=== PATIENT | female | born 1970 ===

== ENCOUNTER 2017-10-09 16:09 | Inpatient (IN) | payer SELFPAY ==
[2017-10-09] MEDS ORDERED: Sodium Chloride 0.9% 1,000 ML IV STA ×2 (16:59→18:17)
[2017-10-09] MEDS ORDERED: Sodium Chloride 0.9% 1,000 ML ONE ×3 (17:11→20:34)
[2017-10-09 17:32] LABS: BASO # 0.1 K/uL (0.0-0.2); BASO % 0.8 % (0.0-2.0); EOS % 0.1 % (0.0-4.0); HEMOGLOBIN 10.9 g/dL (11.0-16.0); MEAN CELL VOLUME 79.7 fL (81.0-99.0); MEAN CORPUSCULAR HGB CONC 32.6 g/dL (33.0-37.0); MEAN PLATELET VOLUME 7.8 fL (7.2-11.7); MONO # 0.8 K/uL (0.0-0.8); MONO % 5.7 % (0.0-10.0); NEUT % 86.4 % (50.0-75.0); PLATELET COUNT 391 K/uL (130-400); RBC 4.19 Mil/uL (3.80-5.20); RED CELL DISTRIBUTION WIDTH 16.6 % (11.5-14.5); WHITE BLOOD COUNT 13.9 K/uL (4.8-10.8)
[2017-10-09 17:38] LABS: ALBUMIN 3.9 g/dL (3.5-5.0); ALT/SGPT 105 U/L (9-52); AST/SGOT 48 U/L (14-36); BLOOD UREA NITROGEN 7 mg/dL (7-17); GFR AFRICAN-AMERICAN > 60; GFR NON-AFRICAN AMERICAN > 60; LIPASE 20 U/L (23-300)
--- NOTE | 2017-10-09 17:57 | C.PDOC ---
History Of Present Illness <Mikki Mayers - Last Filed: 10/09/17 19:14> <Elizabeth Covington - Last Filed: 10/09/17 20:40> Erendira Perez is a 46 year old female who presents to the emergency department complaining of body aches, headache, nausea, vomiting and constipation onset for the last x 3 days. Patient reports that family members at home all have flu- like symptoms but nobody has vomited. She denies any other medical complaints. PMD: None provided. (Mikki Mayers) History Per: Patient History/Exam Limitations: no limitations Onset/Duration Of Symptoms: Days (x3) Current Symptoms Are (Timing): Still Present Associated Symptoms: Nausea, Vomiting, Constipation, Other (body aches, headache ) <Mikki Mayers - Last Filed: 10/09/17 19:14> <Elizabeth Covington - Last Filed: 10/09/17 20:40> Time Seen by Provider: 10/09/17 16:59 Chief Complaint (Nursing): GI Problem Past Medical History Reviewed: Historical Data, Nursing Documentation, Vital Signs - Medical History PMH: No Chronic Diseases Surgical History: Cholecystectomy Family History: States: Unknown Family Hx - Social History Hx Tobacco Use: No Hx Alcohol Use: No Hx Substance Use: No - Immunization History Hx Tetanus Toxoid Vaccination: No Hx Influenza Vaccination: No Hx Pneumococcal Vaccination: No <Mikki Mayers - Last Filed: 10/09/17 19:14> Vital Signs: Last Vital Signs Temp 99.8 F H 10/09/17 19:19 Pulse 83 10/09/17 19:19 Resp 18 10/09/17 19:19 BP 132/76 10/09/17 19:19 Pulse Ox 100 10/09/17 19:19 Review Of Systems Except As Marked, All Systems Reviewed And Found Negative. Constitutional: Positive for: Other (body aches) Gastrointestinal: Positive for: Nausea, Vomiting, Constipation Neurological: Positive for: Headache <Mikki Mayers - Last Filed: 10/09/17 19:14> Physical Exam - Physical Exam Appears: No Acute Distress, Other (sick looking, febrile) Skin: Normal Color, Warm, Dry Head: Atraumatic, Normacephalic Eye(s): bilateral: Normal Inspection Ear(s): Bilateral: Normal Oral Mucosa: Moist Throat: No Erythema Neck: Normal ROM, Supple Chest: Symmetrical Cardiovascular: Rhythm Regular, No Murmur, Other (tachycardic) Respiratory: Normal Breath Sounds, No Wheezing Gastrointestinal/Abdominal: Soft, Tenderness (diffusely ), No Mass, No Distention, No Guarding, No Rebound Back: Normal Inspection, No CVA Tenderness, No Vertebral Tenderness, No Paraspinal Tenderness Extremity: Normal ROM, No Deformity, No Swelling Neurological/Psych: Oriented x3, Normal Speech, Normal Cognition <Mikki Mayers - Last Filed: 10/09/17 19:14> ED Course And Treatment - Laboratory Results Result Diagrams: 10/09/17 17:22 10/09/17 17:22 O2 Sat by Pulse Oximetry: 100 (RA) Pulse Ox Interpretation: Normal Progress Note: Initial Plan: --Chest two views (PA/LAT) [RAD]. --Sodium Chloride 1,000 ml IV 1,000 mls/hr. --Tylenol 325mg tab 975 mg PO. --Zofran Inj 4mg IVP. --Abd 2 views (FLAT/UP or DECUB) [RAD]. CBC - leucocytosis. UA - UTI. CMP- hypokalemia. Urine Cx ordered,. KCL po ordered. Rocephin IV ordered,. -Influenza came back negative. Pt will be given IV fluids and Zofran <Mikki Mayers - Last Filed: 10/09/17 19:14> - Laboratory Results Result Diagrams: 10/09/17 17:22 10/09/17 17:22 <Elizabeth Covington - Last Filed: 10/09/17 20:40> Disposition - Disposition Disposition Time: 19:03 <Mikki Mayers - Last Filed: 10/09/17 19:14> Discussed With : Gil Tipton Comment: accepted the pt on his service and took over the care at 8:36 PM Doctor Will See Patient In The: ED Counseled Patient/Family Regarding: Studies Performed, Diagnosis <Elizabeth Covington - Last Filed: 10/09/17 20:40> - Disposition Disposition: HOSPITALIZED Condition: FAIR Forms: [employer] ([place]) - Clinical Impression Clinical Impression: Fever, Vomiting, Pyelonephritis <Mikki Mayers - Last Filed: 10/09/17 19:14> <Elizabeth Covington - Last Filed: 10/09/17 20:40> - Scribe Statement Amarjit Olivares All medical record entries made by the Scribe were at my direction and personally dictated by me. I have reviewed the chart and agree that the record accurately reflects my personal performance of the history, physical exam, medical decision making, and the department course for this patient. I have also personally directed, reviewed, and agree with the discharge instructions and disposition. (Mikki Mayers) Decision To Admit <Mikki Mayers - Last Filed: 10/09/17 19:14> - Pt Status Changed To: Hospital Disposition Of: Inpatient - Admit Certification Admit to Inpatient:: After my assessment, the patient will require hospitalization for at least two midnights. This is because of the severity of symptoms shown, intensity of services needed, and/or the medical risk in this patient being treated as an outpatient. - InPatient: Physician Admission Certification: I certify that this patient requires 2 or more midnights of care for the following reason:: After my assessment, the patient will require hospitalization for at least two midnights. This is because of the severity of symptoms shown, intensity of services needed, and/or the medical risk in this patient being treated as an outpatient. - . Bed Request Type: Regular Admitting Physician: Gil Tipton <Elizabeth Covington - Last Filed: 10/09/17 20:40> - . Patient Diagnosis: Fever, Vomiting Physician Patient Turnover Patient Signed Over To: Elizabeth Covington Handoff Comments: CXR, Abdominal Xray, Rocephin IV, dispo <Mikki Mayers - Last Filed: 10/09/17 19:14>
[2017-10-09 17:59] LABS: ANISOCYTOSIS SLIGHT; BANDS 5 % (0-2); BASOPHIL 1 % (0-2); HYPOCHROMIC SLIGHT; LARGE PLATELETS PRESENT; LYMPHOCYTE 8 % (20-40); MICROCYTOSIS SLIGHT; MONOCYTE 5 % (0-10); NEUTROPHIL 81 % (50-75); OVALOCYTES SLIGHT; PLATELET ESTIMATE NORMAL (NORMAL); POIKILOCYTOSIS SLIGHT; POLYCHROMIC SLIGHT; TOTAL CELLS COUNTED 100
[2017-10-09] MEDS ORDERED: Potassium Chloride 20 mEq ER Tab PO STA (18:17)
[2017-10-09 18:22] LABS: HCG,QUALITATIVE URINE NEGATIVE (NEGATIVE)
[2017-10-09] MEDS ORDERED: Potassium Chloride 20 mEq ER Tab PO ONE (18:27)
[2017-10-09 18:41] LABS: SQUAMOUS EPITHIAL 2 /hpf (0-5); URINE BACTERIA FEW (<OCC); URINE BILIRUBIN NEGATIVE (NEGATIVE); URINE BLOOD 2+ (NEGATIVE); URINE CLARITY Hazy (Clear); URINE COLOR Yellow (YELLOW); URINE GLUCOSE (UA) NORMAL (Normal); URINE LEUKOCYTE ESTERASE 3+ Leu/uL (Negative); URINE NITRATE POSITIVE (NEGATIVE); URINE PROTEIN 1+ mg/dL (NEGATIVE)
[2017-10-09] MEDS ORDERED: cefTRIAXone IV 1 gm in Dextros 50 ML IVPB ONE (19:24)
[2017-10-09] MEDS ORDERED: Sodium Chloride 0.9% 1,000 ML IV ONE (20:31)
[2017-10-09 20:33] LABS: VENOUS BLOOD GAS BASE EXCESS -1.8 mmol/L (0.0-2.0); VENOUS BLOOD GAS PCO2 39 mmHg (40-60); VENOUS BLOOD GAS PO2 35 mm/Hg (30-55); VENOUS BLOOD PH 7.38 (7.32-7.43)
--- NOTE | 2017-10-09 21:59 | CP.PCM.HP ---
<Yaz ClearyJenny - Last Filed: 10/10/17 01:31> History of Present Illness - History of Present Illness History of Present Illness: HPI: Patient is a 46 year old female with a past medical history of hypercholesterolemia, who presents to the ED with complaints of nausea, vomiting , headache, fevers, and body aches for 3 days. She also complains of chest pain when she coughs, dysuria, and dizziness. Patient took two Aleve and one ibuprofen 600mg without relief of symptoms. She states that every time she drinks or eats, she feels nausea and vomits. Patient denies abdominal pain, hematuria, blood in stools, sore throat, sick contacts and recent travel. and two children were at bedside. PMD: none PMHx: hypercholesterolemia SurgHx: cholecystectomy 2011 FamHx: Mother- VT; Brother- VT, depression, DM; Father- CVA SocHx: denies tobacco, alcohol, and drug use; lives with family in [place]; works as security guard supervisor Allergies: NKDA Medications: none Present on Admission - Present on Admission Any Indicators Present on Admission: No Review of Systems - Constitutional Constitutional: Chills, Fever, Headache, Weakness - EENT Ears: Dizziness - Cardiovascular Cardiovascular: Chest Pain (with coughing), Dyspnea. absent: Palpitations - Respiratory Respiratory: Dyspnea - Gastrointestinal Gastrointestinal: Constipation, Nausea, Vomiting. absent: Abdominal Pain, Diarrhea - Genitourinary Genitourinary: Dysuria. absent: Hematuria, Urinary Frequency - Musculoskeletal Musculoskeletal: Arthralgias, Myalgias - Integumentary Integumentary: absent: Rash - Neurological Neurological: Dizziness, Headaches - Endocrine Endocrine: absent: Palpitations Past Patient History - Past Social History Smoking Status: Never Smoked - PSYCHIATRIC Hx Substance Use: No - SURGICAL HISTORY Hx Cholecystectomy: Yes Meds Allergies/Adverse Reactions: Allergies Allergy/AdvReac Type Severity Reaction Status Date / Time shellfish derived Allergy Verified 10/09/17 16:40 Physical Exam - Constitutional Appears: No Acute Distress - Head Exam Head Exam: ATRAUMATIC, NORMAL INSPECTION - Eye Exam Eye Exam: EOMI, Normal appearance, PERRL - ENT Exam ENT Exam: Mucous Membranes Moist - Respiratory Exam Respiratory Exam: Clear to Auscultation Bilateral, NORMAL BREATHING PATTERN. absent: Rhonchi, Wheezes, Respiratory Distress - Cardiovascular Exam Cardiovascular Exam: REGULAR RHYTHM, +S1, +S2 - GI/Abdominal Exam GI & Abdominal Exam: Normal Bowel Sounds, Soft. absent: Distended, Firm, Guarding, Tenderness - Extremities Exam Extremities exam: Positive for: normal inspection, pedal pulses present. Negative for: pedal edema, tenderness - Back Exam Back exam: CVA tenderness (L). absent: CVA tenderness (R) - Neurological Exam Neurological exam: Alert, Oriented x3 - Psychiatric Exam Psychiatric exam: Normal Affect, Normal Mood - Skin Skin Exam: Dry, Intact, Normal Color, Warm Results - Vital Signs Recent Vital Signs: Last Vital Signs Temp 99.8 F H 10/09/17 19:19 Pulse 99 H 10/09/17 21:27 Resp 19 10/09/17 21:27 BP 113/76 10/09/17 21:27 Pulse Ox 97 10/09/17 21:27 - Labs Result Diagrams: 10/09/17 17:22 10/09/17 17:22 Labs: Laboratory Results - last 24 hr 10/09/17 10/09/17 10/09/17 17:22 17:22 17:27 WBC 13.9 H RBC 4.19 Hgb 10.9 L Hct 33.4 L MCV 79.7 L MCH 26.0 L MCHC 32.6 L RDW 16.6 H Plt Count 391 MPV 7.8 Neut % (Auto) 86.4 H Lymph % (Auto) 7.0 L [place] % (Auto) 5.7 Eos % (Auto) 0.1 Baso % (Auto) 0.8 Neut # 12.0 H Lymph # 1.0 [place] # 0.8 Eos # 0.0 Baso # 0.1 Neutrophils % (Manual) 81 H Band Neutrophils % 5 H Lymphocytes % (Manual) 8 L Monocytes % (Manual) 5 Basophils % (Manual) 1 Platelet Estimate Normal Large Platelets Present Polychromasia Slight Hypochromasia (manual) Slight Poikilocytosis (manual Slight Anisocytosis (manual) Slight Microcytosis (manual) Slight Ovalocytes Slight pO2 VBG pH VBG pCO2 VBG HCO3 VBG Total CO2 VBG O2 Sat (Calc) VBG Base Excess VBG Potassium Glucose Lactate FiO2 Sodium 130 L Potassium 3.4 L Chloride 97 L Carbon Dioxide 21 L Anion Gap 15 BUN 7 Creatinine 0.7 Est GFR ( Amer) > 60 Est GFR (Non-Af Amer) > 60 Random Glucose 110 H Calcium 8.0 L Total Bilirubin 1.4 H AST 48 H ALT 105 H Alkaline Phosphatase 149 H Total Protein 7.7 Albumin 3.9 Globulin 3.9 Albumin/Globulin Ratio 1.0 Lipase 20 L Venous Blood Potassium Urine Color Urine Clarity Urine pH Ur Specific [place] Urine Protein Urine Glucose (UA) Urine Ketones Urine Blood Urine Nitrate Urine Bilirubin Urine Urobilinogen Ur Leukocyte Esterase Urine WBC (Auto) Urine RBC (Auto) Ur Squamous Epith Cells Urine Bacteria Urine HCG, Qual Influenza Typ A,B (EIA) Negative for flu a/b 10/09/17 10/09/17 18:16 20:25 WBC RBC Hgb Hct MCV MCH MCHC RDW Plt Count MPV Neut % (Auto) Lymph % (Auto) [place] % (Auto) Eos % (Auto) Baso % (Auto) Neut # Lymph # [place] # Eos # Baso # Neutrophils % (Manual) Band Neutrophils % Lymphocytes % (Manual) Monocytes % (Manual) Basophils % (Manual) Platelet Estimate Large Platelets Polychromasia Hypochromasia (manual) Poikilocytosis (manual Anisocytosis (manual) Microcytosis (manual) Ovalocytes pO2 35 VBG pH 7.38 VBG pCO2 39 L VBG HCO3 22.7 VBG Total CO2 24.3 VBG O2 Sat (Calc) 67.7 H VBG Base Excess -1.8 L VBG Potassium 3.4 L Glucose 106 H Lactate 0.6 L FiO2 21.0 Sodium 139.0 Potassium Chloride 107.0 Carbon Dioxide Anion Gap BUN Creatinine Est GFR ( Amer) Est GFR (Non-Af Amer) Random Glucose Calcium Total Bilirubin AST ALT Alkaline Phosphatase Total Protein Albumin Globulin Albumin/Globulin Ratio Lipase Venous Blood Potassium 3.4 L Urine Color Yellow Urine Clarity Hazy Urine pH 6.0 Ur Specific [place] 1.006 Urine Protein 1+ H Urine Glucose (UA) Normal Urine Ketones Trace Urine Blood 2+ H Urine Nitrate Positive H Urine Bilirubin Negative Urine Urobilinogen 2.0 H Ur Leukocyte Esterase 3+ H Urine WBC (Auto) 241 H Urine RBC (Auto) 4 H Ur Squamous Epith Cells 2 Urine Bacteria Few H Urine HCG, Qual Negative Influenza Typ A,B (EIA) Assessment & Plan (1) Pyelonephritis Assessment and Plan: * Leukocytosis 13.9, Bands 5 * Febrile at admission, currently afebrile after Tylenol given * Lactate 0.6 * Lipase 20 * UA: 1+ protein, 2+ blood,2 urobilinogen, 3+ LE, +Nitrates, WBC 241, RBC 4, Few bacteria * : negative * In the ED: Tylenol, Rocephin, Toradol, Kdur, and Zofran were given * Abdomen xray: f/u results * CXR: f/u results * Blood cx: f/u results * Urine cx: f/u results * Medications: * Tylenol 650mg mg PO Q6 prn * Rocephin 1gmIV Q24h * Zofran 4mg IV Q6 prn * Pyridium 100mg PO TID prn * NS@100mls/hr Status: Acute (2) History of high cholesterol Assessment and Plan: Patient has hx of high cholesterol; not currently taking medication, but has in the past. Lipid Panel: f/u results Status: Acute (3) Prophylactic measure Assessment and Plan: SCDs, ambulates Pepcid 20mg PO BID Regular diet Status: Acute <Gil Tipton - Last Filed: 10/10/17 19:05> Results - Vital Signs Recent Vital Signs: Last Vital Signs Temp 99.2 F 10/10/17 15:12 Pulse 93 H 10/10/17 15:12 Resp 20 10/10/17 15:12 BP 159/88 H 10/10/17 15:12 Pulse Ox 96 10/10/17 15:12 - Labs Result Diagrams: 10/10/17 08:19 10/10/17 08:19 Labs: Laboratory Results - last 24 hr 10/09/17 10/10/17 10/10/17 20:25 08:19 08:19 WBC 8.9 RBC 3.73 L Hgb 9.8 L Hct 30.2 L MCV 81.2 MCH 26.4 L MCHC 32.5 L RDW 16.5 H Plt Count 331 MPV 8.4 Neut % (Auto) 79.9 H Lymph % (Auto) 12.2 L [place] % (Auto) 7.0 Eos % (Auto) 0.6 Baso % (Auto) 0.3 Neut # 7.1 H Lymph # 1.1 [place] # 0.6 Eos # 0.1 Baso # 0.0 pO2 35 VBG pH 7.38 VBG pCO2 39 L VBG HCO3 22.7 VBG Total CO2 24.3 VBG O2 Sat (Calc) 67.7 H VBG Base Excess -1.8 L VBG Potassium 3.4 L Sodium 139.0 136 Chloride 107.0 104 Glucose 106 H Lactate 0.6 L FiO2 21.0 Potassium 3.5 L Carbon Dioxide 23 Anion Gap 13 BUN 6 L Creatinine 0.7 Est GFR ( Amer) > 60 Est GFR (Non-Af Amer) > 60 Random Glucose 121 H Calcium 8.0 L Total Bilirubin 1.1 AST 52 H ALT 95 H Alkaline Phosphatase 212 H D Total Protein 6.7 Albumin 3.3 L Globulin 3.4 Albumin/Globulin Ratio 1.0 Triglycerides 205 H Cholesterol 151 LDL Cholesterol Direct 64 HDL Cholesterol 19 L Venous Blood Potassium 3.4 L Assessment & Plan - Date & Time Date: 10/10/17 (I have seen and examined the patient. I agree with the findings and plan of care as documented by Dr. Cleary. Patient with pyelonephritis. Rocephin IV. Blood and urine cultures. Also with nausea and vomiting. Symptomatic treatment. IV hydration as needed. Monitor for acute changes.) Time: 19:04 Attending/Attestation - Attestation I have personally seen and examined this patient.: Yes I have fully participated in the care of the patient.: Yes I have reviewed all pertinent clinical information: Yes
[2017-10-09 22:10] VITALS: RESP 20
[2017-10-09] MEDS: Sodium Chloride 0.9% 1,000 ML IV SCH (23:17)
[2017-10-10 08:42] LABS: BASO % 0.3 % (0.0-2.0); EOS # 0.1 K/uL (0.0-0.7); EOS % 0.6 % (0.0-4.0); HEMOGLOBIN 9.8 g/dL (11.0-16.0); LYMPH # 1.1 K/uL (1.0-4.3); LYMPH % 12.2 % (20.0-40.0); MEAN CELL VOLUME 81.2 fL (81.0-99.0); MEAN CORPUSCULAR HEMOGLOBIN 26.4 pg (27.0-31.0); MEAN CORPUSCULAR HGB CONC 32.5 g/dL (33.0-37.0); MEAN PLATELET VOLUME 8.4 fL (7.2-11.7); MONO # 0.6 K/uL (0.0-0.8); NEUT # 7.1 K/uL (1.8-7.0); NEUT % 79.9 % (50.0-75.0); NRBC % 0.1 % (0.0-2.0); RBC 3.73 Mil/uL (3.80-5.20); RED CELL DISTRIBUTION WIDTH 16.5 % (11.5-14.5); WHITE BLOOD COUNT 8.9 K/uL (4.8-10.8)
[2017-10-10] MEDS: Sodium Chloride 0.9% 1,000 ML IV SCH ×3 (08:49→20:56)
[2017-10-10 09:04] LABS: ALBUMIN 3.3 g/dL (3.5-5.0); ALT/SGPT 95 U/L (9-52); AST/SGOT 52 U/L (14-36); BLOOD UREA NITROGEN 6 mg/dL (7-17); GFR AFRICAN-AMERICAN > 60; GFR NON-AFRICAN AMERICAN > 60; HDL CHOLESTEROL 19 mg/dL (30-70)
[2017-10-10 09:05] LABS: LDL CHOLESTEROL 64 mg/dL (0-129)
--- NOTE | 2017-10-10 11:20 | RAD ---
HISTORY: FEVER, CONSTIPATION X 3 DAYS COMPARISON: No prior. FINDINGS: BOWEL: Normal. No obstruction. No free air. BONES: Normal. OTHER FINDINGS: Surgical clips in right upper quadrant consistent with prior cholecystectomy. IMPRESSION: No active disease.
--- NOTE | 2017-10-10 12:26 | RAD ---
HISTORY: fever COMPARISON: No prior. TECHNIQUE: Chest PA and lateral FINDINGS: LUNGS: No active pulmonary disease. PLEURA: No significant pleural effusion identified. No pneumothorax apparent. CARDIOVASCULAR: Normal. OSSEOUS STRUCTURES: No significant abnormalities. VISUALIZED UPPER ABDOMEN: Normal. OTHER FINDINGS: None. IMPRESSION: No active disease.
--- NOTE | 2017-10-10 19:50 | CP.PCM.PN ---
Subjective - Date & Time of Evaluation Date of Evaluation: 10/10/17 Time of Evaluation: 13:00 - Subjective Subjective: no abdominal pain,no back pain c/o body aches,headache and fever Objective - Vital Signs/Intake and Output Vital Signs (last 24 hours): Temp Pulse Resp BP Pulse Ox 99.2 F 93 H 20 159/88 H 96 10/10/17 15:12 10/10/17 15:12 10/10/17 15:12 10/10/17 15:12 10/10/17 15:12 Intake and Output: 10/10/17 10/11/17 18:59 06:59 Intake Total 2300 Balance 2300 - Medications Medications: Current Medications Acetaminophen (Tylenol 325mg Tab) 650 mg PO Q6 PRN PRN Reason: Pain, Mild (1-3) Last Admin: 10/10/17 09:22 Dose: 650 mg Docusate Sodium (Colace) 100 mg PO BID [facility] Last Admin: 10/10/17 17:55 Dose: 100 mg Famotidine (Pepcid) 20 mg PO BID [facility] Last Admin: 10/10/17 17:55 Dose: 20 mg Ceftriaxone Sodium 1 gm/ (Sodium Chloride) 100 mls @ 100 mls/hr IVPB DAILY [facility] Last Admin: 10/10/17 09:26 Dose: 100 mls/hr Sodium Chloride (Sodium Chloride 0.9%) 1,000 mls @ 100 mls/hr IV .Q10H [facility] Last Admin: 10/10/17 18:06 Dose: Not Given Ondansetron HCl (Zofran Inj) 4 mg IVP Q6 PRN PRN Reason: Nausea/Vomiting Last Admin: 10/10/17 17:59 Dose: 4 mg Phenazopyridine HCl (Pyridium) 100 mg PO TID PRN PRN Reason: Urinary discomt Pneumococcal Polyvalent Vaccine (Pneumovax 23 Vaccine) 0.5 ml IM .ONCE ONE Stop: 10/11/17 10:01 - Labs Labs: 10/10/17 08:19 10/10/17 08:19 - Constitutional Appears: Non-toxic - Head Exam Head Exam: NORMAL INSPECTION - Eye Exam Eye Exam: Normal appearance - ENT Exam ENT Exam: Mucous Membranes Moist - Neck Exam Neck Exam: Full ROM - Respiratory Exam Respiratory Exam: Clear to Ausculation Bilateral, NORMAL BREATHING PATTERN - Cardiovascular Exam Cardiovascular Exam: REGULAR RHYTHM - GI/Abdominal Exam GI & Abdominal Exam: Soft, Normal Bowel Sounds. absent: Guarding - Extremities Exam Extremities Exam: Full ROM - Back Exam Back Exam: NORMAL INSPECTION - Neurological Exam Neurological Exam: Awake, Oriented x3 - Psychiatric Exam Psychiatric exam: Normal Affect - Skin Skin Exam: Dry Assessment and Plan - Assessment and Plan (Free Text) Assessment: 46 year old female with a past medical history of hypercholesterolemia, who presents to the ED with complaints of nausea, vomiting, headache, fevers, and body aches for 3 days Plan: 1. Fever 102 F and UTI continue ceftrixone urine possitive for ecoli follow cultures 2.Intractable vomting fluids,zofran prn 3. DVT and GI prophylasix
[2017-10-10] MEDS ORDERED: Potassium Chloride 20 mEq/15 ml LIQ UD PO ONE (21:22)
[2017-10-11] MEDS: Sodium Chloride 0.9% 1,000 ML IV SCH ×2 (05:30→17:52)
[2017-10-11 06:21] LABS: BASO # 0.1 K/uL (0.0-0.2); BASO % 0.7 % (0.0-2.0); HEMOGLOBIN 9.6 g/dL (11.0-16.0); LYMPH # 1.5 K/uL (1.0-4.3); LYMPH % 14.4 % (20.0-40.0); MEAN CELL VOLUME 80.5 fL (81.0-99.0); MEAN CORPUSCULAR HEMOGLOBIN 26.3 pg (27.0-31.0); MEAN CORPUSCULAR HGB CONC 32.7 g/dL (33.0-37.0); MEAN PLATELET VOLUME 8.6 fL (7.2-11.7); MONO # 0.6 K/uL (0.0-0.8); MONO % 5.8 % (0.0-10.0); NEUT # 8.2 K/uL (1.8-7.0); NEUT % 79.1 % (50.0-75.0); NRBC % 0.1 % (0.0-2.0); RBC 3.66 Mil/uL (3.80-5.20); RED CELL DISTRIBUTION WIDTH 16.8 % (11.5-14.5); WHITE BLOOD COUNT 10.4 K/uL (4.8-10.8)
[2017-10-11 06:49] LABS: ALBUMIN 3.5 g/dL (3.5-5.0); ALT/SGPT 88 U/L (9-52); AST/SGOT 59 U/L (14-36); BLOOD UREA NITROGEN 3 mg/dL (7-17); CALCIUM 8.1 mg/dl (8.6-10.4); GFR AFRICAN-AMERICAN > 60; GFR NON-AFRICAN AMERICAN > 60
--- NOTE | 2017-10-11 07:48 | CP.PCM.PN ---
<Rika Dumont AfuaJenny - Last Filed: 10/11/17 13:48> Subjective - Date & Time of Evaluation Date of Evaluation: 10/11/17 Time of Evaluation: 07:00 - Subjective Subjective: Medicine Progress Note: Patient was seen and examined at bedside in the AM. Per nurse she has had a fever overnight 100.2. Patient states she has also had a fever and a headache.. She denies dysuria, hematuria, flank pain, nausea, vomiting, or diarrhea. She state she feels constipated as she has not had a bowel movement in a few days. Objective - Vital Signs/Intake and Output Vital Signs (last 24 hours): Temp Pulse Resp BP Pulse Ox 100.2 F H 101 H 20 164/90 H 97 10/11/17 06:45 10/11/17 06:00 10/11/17 06:00 10/11/17 06:00 10/11/17 06:00 Intake and Output: 10/11/17 10/11/17 06:59 18:59 Intake Total 2300 Balance 2300 - Medications Medications: Current Medications Acetaminophen (Tylenol 325mg Tab) 650 mg PO Q6 [facility] Stop: 10/12/17 06:01 Docusate Sodium (Colace) 100 mg PO BID [facility] Last Admin: 10/10/17 17:55 Dose: 100 mg Famotidine (Pepcid) 20 mg PO BID [facility] Last Admin: 10/10/17 17:55 Dose: 20 mg Heparin Sodium (Porcine) (Heparin) 5,000 units SC Q8 [facility] Last Admin: 10/11/17 07:00 Dose: 5,000 units Ceftriaxone Sodium 1 gm/ (Sodium Chloride) 100 mls @ 100 mls/hr IVPB DAILY [facility] Last Admin: 10/10/17 09:26 Dose: 100 mls/hr Sodium Chloride (Sodium Chloride 0.9%) 1,000 mls @ 100 mls/hr IV .Q10H [facility] Last Admin: 10/11/17 05:30 Dose: 100 mls/hr Ondansetron HCl (Zofran Inj) 4 mg IVP Q6 PRN PRN Reason: Nausea/Vomiting Last Admin: 10/10/17 17:59 Dose: 4 mg Phenazopyridine HCl (Pyridium) 100 mg PO TID PRN PRN Reason: Urinary discomt Pneumococcal Polyvalent Vaccine (Pneumovax 23 Vaccine) 0.5 ml IM .ONCE ONE Stop: 10/11/17 10:01 - Labs Labs: 10/11/17 06:06 10/11/17 06:06 - Constitutional Appears: No Acute Distress - Head Exam Head Exam: ATRAUMATIC, NORMAL INSPECTION - Eye Exam Eye Exam: EOMI, Normal appearance - ENT Exam ENT Exam: Mucous Membranes Moist - Respiratory Exam Respiratory Exam: Clear to Ausculation Bilateral, NORMAL BREATHING PATTERN - Cardiovascular Exam Cardiovascular Exam: REGULAR RHYTHM, +S1, +S2 - GI/Abdominal Exam GI & Abdominal Exam: Soft, Normal Bowel Sounds. absent: Tenderness - Extremities Exam Extremities Exam: Normal Inspection - Neurological Exam Neurological Exam: Alert, Awake, Oriented x3 - Psychiatric Exam Psychiatric exam: Normal Affect, Normal Mood - Skin Skin Exam: Normal Color, Warm Assessment and Plan - Assessment and Plan (Free Text) Assessment: 1) Pyelonephritis - Leukocytosis 13.9, Bands 5 - WBC 10.4 - Febrile at admission, currently afebrile after Tylenol given - UA: 1+ protein, 2+ blood,2 urobilinogen, 3+ LE, +Nitrates, WBC 241, RBC 4, Few bacteria - : negative - Images * Abdomen xray: No active disease * Chest X-ray: no active disease - Blood Culture: no growth - Urine Culture (10/09/17): E. Coli * repeat UA * repeat urine culture - Medications: * Tylenol 650mg mg PO Q6 prn * Motrin * Rocephin 1gmIV Q24h started on 10/10/17 * Zofran 4mg IV Q6 prn * Pyridium 100mg PO TID prn * NS@100mls/hr 2.) Constipation - resolved - Miralax PO BID PRN 3) History of high cholesterol - Patient has hx of high cholesterol; not currently taking medication, but has in the past. - Lipid Panel: Triglycerides 205; Cholesterol 151; LDL 64; HDL 19 - Heart Healthy Diet 3) Prophylactic measure - SCDs, ambulates - Pepcid 20mg PO BID Disposition: discharge pending repeat UA and repeat urine culture Case discussed with Dr. Dot Dumont PGY-1 <Ernst Chris - Last Filed: 10/11/17 17:00> Objective - Vital Signs/Intake and Output Vital Signs (last 24 hours): Temp Pulse Resp BP Pulse Ox 100.5 F H 90 20 151/79 H 94 L 10/11/17 07:19 10/11/17 07:19 10/11/17 07:19 10/11/17 07:19 10/11/17 07:19 Intake and Output: 10/11/17 10/11/17 06:59 18:59 Intake Total 2300 1500 Balance 2300 1500 - Medications Medications: Current Medications Acetaminophen (Tylenol 325mg Tab) 650 mg PO Q6 [facility] Stop: 10/12/17 06:01 Last Admin: 10/11/17 15:02 Dose: 650 mg Famotidine (Pepcid) 20 mg PO BID [facility] Last Admin: 10/11/17 09:55 Dose: 20 mg Heparin Sodium (Porcine) (Heparin) 5,000 units SC Q8 [facility] Last Admin: 10/11/17 14:59 Dose: 5,000 units Ceftriaxone Sodium 1 gm/ (Sodium Chloride) 100 mls @ 100 mls/hr IVPB DAILY [facility] Last Admin: 10/11/17 09:56 Dose: 100 mls/hr Sodium Chloride (Sodium Chloride 0.9%) 1,000 mls @ 100 mls/hr IV .Q10H [facility] Last Admin: 10/11/17 05:30 Dose: 100 mls/hr Ondansetron HCl (Zofran Inj) 4 mg IVP Q6 PRN PRN Reason: Nausea/Vomiting Last Admin: 10/10/17 17:59 Dose: 4 mg Phenazopyridine HCl (Pyridium) 100 mg PO TID PRN PRN Reason: Urinary discomt Polyethylene Glycol (Miralax) 17 gm PO BID PRN PRN Reason: Constipation - Labs Labs: 10/11/17 06:06 10/11/17 06:06 Attending/Attestation - Attestation I have personally seen and examined this patient.: Yes I have fully participated in the care of the patient.: Yes I have reviewed all pertinent clinical information, including history, physical exam and plan: Yes Notes (Text): 10/11/17 17:00 Medical attending: Patient was seen and examined with the medical physics researcher. I reviewed the above note and agree with the above. Patient had a family member at bedside, she was okay with us discussing her condition with the family member present. The patient reports feeling much better, she explains that her urinary symptoms are much improved from before. She still is having some headache though. But overall she reiterates to us that she feels much better The preliminary urine culture returned showing Escherichia coli. It has a lot of sensitivities to antibiotics. Sodium continue with the Rocephin at this time. Also get a repeat UA as well as repeat urine culture. It is possible that maybe she could be discharged tomorrow we'll see how she does. Thank you very much, Ernst Chris
[2017-10-11] MEDS ORDERED: Potassium Chloride 20 mEq ER Tab PO ONE (07:49)
[2017-10-11] MEDS ORDERED: Pneumococcal 23-Valent Vaccine IM ONE (10:00)
[2017-10-11] MEDS ORDERED: Influenza Vaccine 60 mcg/0.5 mL SYR (4YR UP) IM ONE (10:00)
[2017-10-11] MEDS ORDERED: POLYETHYLENE GLYCOL 3350 17 GM/Dose PACKET PO PRN (10:53)
[2017-10-11 23:08] LABS: SQUAMOUS EPITHIAL < 1 /hpf (0-5); URINE BACTERIA OCC (<OCC); URINE BILIRUBIN NEGATIVE (NEGATIVE); URINE BLOOD 1+ (NEGATIVE); URINE CLARITY Clear (Clear); URINE COLOR Yellow (YELLOW); URINE GLUCOSE (UA) NORMAL (Normal); URINE LEUKOCYTE ESTERASE NEG Leu/uL (Negative); URINE NITRATE NEGATIVE (NEGATIVE); URINE PROTEIN NEGATIVE (NEGATIVE)
[2017-10-12] MEDS: Sodium Chloride 0.9% 1,000 ML IV SCH ×2 (00:30→04:00)
[2017-10-12 05:41] VITALS: O2SAT 95
[2017-10-12 07:30] LABS: BASO % 0.7 % (0.0-2.0); EOS # 0.1 K/uL (0.0-0.7); EOS % 1.3 % (0.0-4.0); HEMOGLOBIN 9.4 g/dL (11.0-16.0); LYMPH # 1.7 K/uL (1.0-4.3); LYMPH % 25.2 % (20.0-40.0); MEAN CELL VOLUME 79.9 fL (81.0-99.0); MEAN CORPUSCULAR HEMOGLOBIN 26.1 pg (27.0-31.0); MEAN CORPUSCULAR HGB CONC 32.6 g/dL (33.0-37.0); MEAN PLATELET VOLUME 8.3 fL (7.2-11.7); MONO # 0.7 K/uL (0.0-0.8); MONO % 10.4 % (0.0-10.0); NEUT # 4.3 K/uL (1.8-7.0); NEUT % 62.4 % (50.0-75.0); NRBC % 0.1 % (0.0-2.0); RBC 3.59 Mil/uL (3.80-5.20); RED CELL DISTRIBUTION WIDTH 16.6 % (11.5-14.5); WHITE BLOOD COUNT 6.9 K/uL (4.8-10.8)
[2017-10-12 08:04] LABS: ALB/GLOB RATIO 0.9 (1.0-2.1); ALBUMIN 3.4 g/dL (3.5-5.0); ALT/SGPT 92 U/L (9-52); AST/SGOT 46 U/L (14-36); BLOOD UREA NITROGEN 3 mg/dL (7-17); CALCIUM 8.4 mg/dl (8.6-10.4); GFR AFRICAN-AMERICAN > 60; GFR NON-AFRICAN AMERICAN > 60
[2017-10-12 08:33] VITALS: BP 156/94; PULSE 90; TEMP 98.7
--- NOTE | 2017-10-12 10:35 | CP.PCM.DIS ---
<Rika Dumont - Last Filed: 10/12/17 16:18> Provider - Provider Date of Admission: 10/09/17 20:34 Attending physician: Ernst Chris DO Time Spent in preparation of Discharge (in minutes): 40 Hospital Course - Lab Results Lab Results: Micro Results 10/09/17 22:45 Blood Blood Culture - Preliminary NO GROWTH AFTER 48 HOURS 10/09/17 18:42 Urine Urine Culture - Final Escherichia Coli Most Recent Lab Values WBC 6.9 K/uL (4.8-10.8) 10/12/17 07:13 RBC 3.59 Mil/uL (3.80-5.20) L 10/12/17 07:13 Hgb 9.4 g/dL (11.0-16.0) L 10/12/17 07:13 Hct 28.7 % (34.0-47.0) L 10/12/17 07:13 MCV 79.9 fL (81.0-99.0) L 10/12/17 07:13 MCH 26.1 pg (27.0-31.0) L 10/12/17 07:13 MCHC 32.6 g/dL (33.0-37.0) L 10/12/17 07:13 RDW 16.6 % (11.5-14.5) H 10/12/17 07:13 Plt Count 407 K/uL (130-400) H 10/12/17 07:13 MPV 8.3 fL (7.2-11.7) 10/12/17 07:13 Neut % (Auto) 62.4 % (50.0-75.0) 10/12/17 07:13 Lymph % (Auto) 25.2 % (20.0-40.0) 10/12/17 07:13 [place] % (Auto) 10.4 % (0.0-10.0) H 10/12/17 07:13 Eos % (Auto) 1.3 % (0.0-4.0) 10/12/17 07:13 Baso % (Auto) 0.7 % (0.0-2.0) 10/12/17 07:13 Neut # 4.3 K/uL (1.8-7.0) 10/12/17 07:13 Lymph # 1.7 K/uL (1.0-4.3) 10/12/17 07:13 [place] # 0.7 K/uL (0.0-0.8) 10/12/17 07:13 Eos # 0.1 K/uL (0.0-0.7) 10/12/17 07:13 Baso # 0.0 K/uL (0.0-0.2) 10/12/17 07:13 Neutrophils % (Manual) 81 % (50-75) H 10/09/17 17:22 Band Neutrophils % 5 % (0-2) H 10/09/17 17:22 Lymphocytes % (Manual) 8 % (20-40) L 10/09/17 17:22 Monocytes % (Manual) 5 % (0-10) 10/09/17 17:22 Basophils % (Manual) 1 % (0-2) 10/09/17 17:22 Platelet Estimate Normal (NORMAL) 10/09/17 17:22 Large Platelets Present 10/09/17 17:22 Polychromasia Slight 10/09/17 17:22 Hypochromasia (manual) Slight 10/09/17 17:22 Poikilocytosis (manual Slight 10/09/17 17:22 Anisocytosis (manual) Slight 10/09/17 17:22 Microcytosis (manual) Slight 10/09/17 17:22 Ovalocytes Slight 10/09/17 17:22 pO2 35 mm/Hg (30-55) 10/09/17 20:25 VBG pH 7.38 (7.32-7.43) 10/09/17 20:25 VBG pCO2 39 mmHg (40-60) L 10/09/17 20:25 VBG HCO3 22.7 mmol/L 10/09/17 20:25 VBG Total CO2 24.3 mmol/L (22-28) 10/09/17 20:25 VBG O2 Sat (Calc) 67.7 % (40-65) H 10/09/17 20:25 VBG Base Excess -1.8 mmol/L (0.0-2.0) L 10/09/17 20:25 VBG Potassium 3.4 mmol/L (3.6-5.2) L 10/09/17 20:25 Sodium 139.0 mmol/l (132-148) 10/09/17 20:25 Chloride 107.0 mmol/L (98-107) 10/09/17 20:25 Glucose 106 mg/dl (65-105) H 10/09/17 20:25 Lactate 0.6 mmol/L (0.7-2.1) L 10/09/17 20:25 FiO2 21.0 % 10/09/17 20:25 Sodium 135 mmol/L (132-148) 10/12/17 07:13 Potassium 3.8 mmol/L (3.6-5.2) 10/12/17 07:13 Chloride 104 mmol/L (98-107) 10/12/17 07:13 Carbon Dioxide 26 mmol/L (22-30) 10/12/17 07:13 Anion Gap 10 (10-20) 10/12/17 07:13 BUN 3 mg/dL (7-17) L 10/12/17 07:13 Creatinine 0.7 mg/dL (0.7-1.2) 10/12/17 07:13 Est GFR ( Amer) > 60 10/12/17 07:13 Est GFR (Non-Af Amer) > 60 10/12/17 07:13 Random Glucose 94 mg/dL (65-105) 10/12/17 07:13 Calcium 8.4 mg/dl (8.6-10.4) L 10/12/17 07:13 Phosphorus 3.3 mg/dL (2.5-4.5) 10/12/17 07:13 Magnesium 2.0 mg/dL (1.6-2.3) 10/12/17 07:13 Total Bilirubin 0.6 mg/dL (0.2-1.3) 10/12/17 07:13 AST 46 U/L (14-36) H D 10/12/17 07:13 ALT 92 U/L (9-52) H 10/12/17 07:13 Alkaline Phosphatase 261 U/L (38-126) H 10/12/17 07:13 Total Protein 6.9 g/dL (6.3-8.3) 10/12/17 07:13 Albumin 3.4 g/dL (3.5-5.0) L 10/12/17 07:13 Globulin 3.6 gm/dL (2.2-3.9) 10/12/17 07:13 Albumin/Globulin Ratio 0.9 (1.0-2.1) L 10/12/17 07:13 Triglycerides 205 mg/dL (0-149) H 10/10/17 08:19 Cholesterol 151 mg/dL (0-199) 10/10/17 08:19 LDL Cholesterol Direct 64 mg/dL (0-129) 10/10/17 08:19 HDL Cholesterol 19 mg/dL (30-70) L 10/10/17 08:19 Lipase 20 U/L (23-300) L 10/09/17 17:22 Venous Blood Potassium 3.4 mmol/L (3.6-5.2) L 10/09/17 20:25 Urine Color Yellow (YELLOW) 10/11/17 22:57 Urine Clarity Clear (Clear) 10/11/17 22:57 Urine pH 7.0 (5.0-8.0) 10/11/17 22:57 Ur Specific [place] 1.005 (1.003-1.030) 10/11/17 22:57 Urine Protein Negative mg/dL (NEGATIVE) 10/11/17 22:57 Urine Glucose (UA) Normal mg/dL (Normal) 10/11/17 22:57 Urine Ketones Negative mg/dL (NEGATIVE) 10/11/17 22:57 Urine Blood 1+ (NEGATIVE) H 10/11/17 22:57 Urine Nitrate Negative (NEGATIVE) 10/11/17 22:57 Urine Bilirubin Negative (NEGATIVE) 10/11/17 22:57 Urine Urobilinogen 4.0 mg/dL (0.2-1.0) H 10/11/17 22:57 Ur Leukocyte Esterase Neg [place]/uL (Negative) 10/11/17 22:57 Urine WBC (Auto) 4 /hpf (0-5) 10/11/17 22:57 Urine RBC (Auto) 6 /hpf (0-3) H 10/11/17 22:57 Ur Squamous Epith Cells < 1 /hpf (0-5) 10/11/17 22:57 Urine Bacteria Occ (<OCC) H 10/11/17 22:57 Urine HCG, Qual Negative (NEGATIVE) 10/09/17 18:16 Influenza Typ A,B (EIA) Negative for flu a/b (NEGATIVE) 10/09/17 17:27 - Hospital Course Hospital Course: HPI: Patient is a 46 year old female with a past medical history of hypercholesterolemia, who presents to the ED with complaints of nausea, vomiting , headache, fevers, and body aches for 3 days. She also complains of chest pain when she coughs, dysuria, and dizziness. Patient took two Aleve and one ibuprofen 600mg without relief of symptoms. She states that every time she drinks or eats, she feels nausea and vomits. Patient denies abdominal pain, hematuria, blood in stools, sore throat, sick contacts and recent travel. and two children were at bedside. PMD: none PMHx: hypercholesterolemia SurgHx: cholecystectomy 2011 FamHx: Mother- MS; Brother- MS, depression, DM; Father- CVA SocHx: denies tobacco, alcohol, and drug use; lives with family in [place]; works as armored car guard and driver Allergies: NKDA Medications: none Hospital Course: Patient was admitted for acute pyelonephritis. Upon admission, patient had leukocytosis with WBC 13.9, and bands 5. UA tested positive for LE, nitrates, WBC, and RBC. Abdominal xray, and CXR showed no active disease. Urine culture showed E. coli growth which has a lot of sensitivities to antibiotics. Blood culture did not show any growth after 48 hours. Repeat UA was negative for LE, nitrates, and WBC. Patient received Rocephin 1gm IV, and NS @ 100 mls/hr. Patient complaints of headaches, and fever were managed with Tylenol 650 mg prn. Patient received Zofran for nausea. Patient's complaints of vomiting, nausea, headaches, fever, body aches, and constipation have resolved. Patient has a history of cholesterol for which she is not taking any medications currently, but has taken in the past. Her lipid panel results were Triglycerides 205, cholesterol 151, LDL 64, and HDL 19. This is a summary of patient's hospital course, please see chart for full details. Patient stable for discharge home per Dr. Chris. Patient to start medications: - Ciprofloxacin 500mg two times per day for 5 days with food. - Tylenol over the counter for headache Patient to follow up with primary doctor [facility] in 1-2 weeks Patient to return to the emergency room if symptoms return or worsen. Discharge Exam - Head Exam Head Exam: ATRAUMATIC, NORMAL INSPECTION - Eye Exam Eye Exam: EOMI, Normal appearance - ENT Exam ENT Exam: Mucous Membranes Moist - Respiratory Exam Respiratory Exam: Clear to PA & Lateral, NORMAL BREATHING PATTERN - Cardiovascular Exam Cardiovascular Exam: REGULAR RHYTHM, +S1, +S2 - GI/Abdominal Exam GI & Abdominal Exam: Normal Bowel Sounds, Soft. absent: Tenderness - Extremities Exam Extremities exam: normal inspection - Back Exam Back exam: absent: CVA tenderness (L), CVA tenderness (R) - Neurological Exam Neurological exam: Alert, Oriented x3 - Psychiatric Exam Psychiatric exam: Normal Affect, Normal Mood - Skin Skin Exam: Normal Color, Warm Discharge Plan - Discharge Medications Prescriptions: Ciprofloxacin [Cipro] 500 mg PO BID #10 tab - Follow Up Plan Condition: FAIR Disposition: HOME/ ROUTINE Instructions: Ciprofloxacin (By mouth), Acute Pyelonephritis (DC) <Ernst Chris - Last Filed: 10/12/17 18:53> Provider - Provider Date of Admission: 10/09/17 20:34 Attending physician: Ernst Chris DO Hospital Course - Lab Results Lab Results: Micro Results 10/09/17 22:45 Blood Blood Culture - Preliminary NO GROWTH AFTER 48 HOURS 10/09/17 18:42 Urine Urine Culture - Final Escherichia Coli Most Recent Lab Values WBC 6.9 K/uL (4.8-10.8) 10/12/17 07:13 RBC 3.59 Mil/uL (3.80-5.20) L 10/12/17 07:13 Hgb 9.4 g/dL (11.0-16.0) L 10/12/17 07:13 Hct 28.7 % (34.0-47.0) L 10/12/17 07:13 MCV 79.9 fL (81.0-99.0) L 10/12/17 07:13 MCH 26.1 pg (27.0-31.0) L 10/12/17 07:13 MCHC 32.6 g/dL (33.0-37.0) L 10/12/17 07:13 RDW 16.6 % (11.5-14.5) H 10/12/17 07:13 Plt Count 407 K/uL (130-400) H 10/12/17 07:13 MPV 8.3 fL (7.2-11.7) 10/12/17 07:13 Neut % (Auto) 62.4 % (50.0-75.0) 10/12/17 07:13 Lymph % (Auto) 25.2 % (20.0-40.0) 10/12/17 07:13 [place] % (Auto) 10.4 % (0.0-10.0) H 10/12/17 07:13 Eos % (Auto) 1.3 % (0.0-4.0) 10/12/17 07:13 Baso % (Auto) 0.7 % (0.0-2.0) 10/12/17 07:13 Neut # 4.3 K/uL (1.8-7.0) 10/12/17 07:13 Lymph # 1.7 K/uL (1.0-4.3) 10/12/17 07:13 [place] # 0.7 K/uL (0.0-0.8) 10/12/17 07:13 Eos # 0.1 K/uL (0.0-0.7) 10/12/17 07:13 Baso # 0.0 K/uL (0.0-0.2) 10/12/17 07:13 Neutrophils % (Manual) 81 % (50-75) H 10/09/17 17:22 Band Neutrophils % 5 % (0-2) H 10/09/17 17:22 Lymphocytes % (Manual) 8 % (20-40) L 10/09/17 17:22 Monocytes % (Manual) 5 % (0-10) 10/09/17 17:22 Basophils % (Manual) 1 % (0-2) 10/09/17 17:22 Platelet Estimate Normal (NORMAL) 10/09/17 17:22 Large Platelets Present 10/09/17 17:22 Polychromasia Slight 10/09/17 17:22 Hypochromasia (manual) Slight 10/09/17 17:22 Poikilocytosis (manual Slight 10/09/17 17:22 Anisocytosis (manual) Slight 10/09/17 17:22 Microcytosis (manual) Slight 10/09/17 17:22 Ovalocytes Slight 10/09/17 17:22 pO2 35 mm/Hg (30-55) 10/09/17 20:25 VBG pH 7.38 (7.32-7.43) 10/09/17 20:25 VBG pCO2 39 mmHg (40-60) L 10/09/17 20:25 VBG HCO3 22.7 mmol/L 10/09/17 20:25 VBG Total CO2 24.3 mmol/L (22-28) 10/09/17 20:25 VBG O2 Sat (Calc) 67.7 % (40-65) H 10/09/17 20:25 VBG Base Excess -1.8 mmol/L (0.0-2.0) L 10/09/17 20:25 VBG Potassium 3.4 mmol/L (3.6-5.2) L 10/09/17 20:25 Sodium 139.0 mmol/l (132-148) 10/09/17 20:25 Chloride 107.0 mmol/L (98-107) 10/09/17 20:25 Glucose 106 mg/dl (65-105) H 10/09/17 20:25 Lactate 0.6 mmol/L (0.7-2.1) L 10/09/17 20:25 FiO2 21.0 % 10/09/17 20:25 Sodium 135 mmol/L (132-148) 10/12/17 07:13 Potassium 3.8 mmol/L (3.6-5.2) 10/12/17 07:13 Chloride 104 mmol/L (98-107) 10/12/17 07:13 Carbon Dioxide 26 mmol/L (22-30) 10/12/17 07:13 Anion Gap 10 (10-20) 10/12/17 07:13 BUN 3 mg/dL (7-17) L 10/12/17 07:13 Creatinine 0.7 mg/dL (0.7-1.2) 10/12/17 07:13 Est GFR ( Amer) > 60 10/12/17 07:13 Est GFR (Non-Af Amer) > 60 10/12/17 07:13 Random Glucose 94 mg/dL (65-105) 10/12/17 07:13 Calcium 8.4 mg/dl (8.6-10.4) L 10/12/17 07:13 Phosphorus 3.3 mg/dL (2.5-4.5) 10/12/17 07:13 Magnesium 2.0 mg/dL (1.6-2.3) 10/12/17 07:13 Total Bilirubin 0.6 mg/dL (0.2-1.3) 10/12/17 07:13 AST 46 U/L (14-36) H D 10/12/17 07:13 ALT 92 U/L (9-52) H 10/12/17 07:13 Alkaline Phosphatase 261 U/L (38-126) H 10/12/17 07:13 Total Protein 6.9 g/dL (6.3-8.3) 10/12/17 07:13 Albumin 3.4 g/dL (3.5-5.0) L 10/12/17 07:13 Globulin 3.6 gm/dL (2.2-3.9) 10/12/17 07:13 Albumin/Globulin Ratio 0.9 (1.0-2.1) L 10/12/17 07:13 Triglycerides 205 mg/dL (0-149) H 10/10/17 08:19 Cholesterol 151 mg/dL (0-199) 10/10/17 08:19 LDL Cholesterol Direct 64 mg/dL (0-129) 10/10/17 08:19 HDL Cholesterol 19 mg/dL (30-70) L 10/10/17 08:19 Lipase 20 U/L (23-300) L 10/09/17 17:22 Venous Blood Potassium 3.4 mmol/L (3.6-5.2) L 10/09/17 20:25 Urine Color Yellow (YELLOW) 10/11/17 22:57 Urine Clarity Clear (Clear) 10/11/17 22:57 Urine pH 7.0 (5.0-8.0) 10/11/17 22:57 Ur Specific [place] 1.005 (1.003-1.030) 10/11/17 22:57 Urine Protein Negative mg/dL (NEGATIVE) 10/11/17 22:57 Urine Glucose (UA) Normal mg/dL (Normal) 10/11/17 22:57 Urine Ketones Negative mg/dL (NEGATIVE) 10/11/17 22:57 Urine Blood 1+ (NEGATIVE) H 10/11/17 22:57 Urine Nitrate Negative (NEGATIVE) 10/11/17 22:57 Urine Bilirubin Negative (NEGATIVE) 10/11/17 22:57 Urine Urobilinogen 4.0 mg/dL (0.2-1.0) H 10/11/17 22:57 Ur Leukocyte Esterase Neg [place]/uL (Negative) 10/11/17 22:57 Urine WBC (Auto) 4 /hpf (0-5) 10/11/17 22:57 Urine RBC (Auto) 6 /hpf (0-3) H 10/11/17 22:57 Ur Squamous Epith Cells < 1 /hpf (0-5) 10/11/17 22:57 Urine Bacteria Occ (<OCC) H 10/11/17 22:57 Urine HCG, Qual Negative (NEGATIVE) 10/09/17 18:16 Influenza Typ A,B (EIA) Negative for flu a/b (NEGATIVE) 10/09/17 17:27 Attending/Attestation - Attestation I have personally seen and examined this patient.: Yes I have fully participated in the care of the patient.: Yes I have reviewed all pertinent clinical information, including history, physical exam and plan: Yes Notes (Text): 10/12/17 18:53 Medical attending: Patient was seen and examined by me, reviewed the above note by medical records clerk and agree The patient reported that she was feeling very well. She is tolerating her diet. She also reported that her urination was fine as well she did not have any pain with urination. She also denied having fevers. As reported above the patient had a urine culture showing Escherichia coli positive. It is sensitive to many types of antibiotics including the Rocephin that she is on. Also the Escherichia coli showed that the Cipro was 0.25 PÉREZ. Extensor will discharge the patient today PO Cipro to be taken twice a day for several more days Thank you very much, Ernst Chris
== END 2017-10-12 12:28 | disposition home or self-care (01) | DRG 690 ==
LOC: C.ER 16:09 → C.9E 20:34 → C.3T 21:09
PROVIDERS: ADMIT Hospitalist; ATTEND Hospitalist
DX: N10 Acute pyelonephritis (principal); B96.20 Unspecified Escherichia coli [E. coli] as the cause of diseases classified elsewhere; E78.00 Pure hypercholesterolemia, unspecified; K59.00 Constipation, unspecified; Z90.49 Acquired absence of other specified parts of digestive tract